=== PATIENT | female | born 1995 | race African-American/Black ===

== ENCOUNTER 2017-02-15 22:35 | Emergency (ER) | payer OTHER ==
[~2017-02-15 22:35] MED LIST: PRENATAL1 TA1 PO; ZOFRAN PO
== END 2017-02-16 00:16 | disposition home or self-care (01) ==
LOC: CFTX 22:35
DX: S63.502A Unspecified sprain of left wrist, initial encounter (principal); S93.601A Unspecified sprain of right foot, initial encounter; S80.02XA Contusion of left knee, initial encounter; F17.210 Nicotine dependence, cigarettes, uncomplicated; V49.00XA Driver injured in collision with unspecified motor vehicles in nontraffic accident, initial encounter
CPT/HCPCS: 29125; 99283

== ENCOUNTER 2017-05-24 16:06 | Emergency (ER) | payer OTHER ==
--- NOTE | ~2017-05-24 | US61 ---
[facility] A Service of [facility] & [facility] RADIOLOGY TEXT RESULTS PATIENT: KATHARINA HICKMAN LOCATION: CFTX : 94 UNIT #: [id number] AGE: [address]: Anna Meng SEX: F ORDER DR: [id number] [facility] [address] [place], [place] [address] [id number] MR#: [id number] Acc #: [id number] NAME: KATHARINA HICKMAN : 1995 SEX: F STUDY DATE/TIME: 05/24/2017 17:47 UNIT: CFTX ROOM: STUDY DESCRIPTION: US /Mat <14Wk / Attending Physician: Anna Meng Pa-C Ordering Physician: Ed Doctor [id number] [facility] Primary Care Physician: Primary Care Physician No MEDICAL IMAGING REPORT This report is preliminary unless electronic signature is present EXAM Pelvic ultrasound 05/24/2017 HISTORY 21-year-old female with pelvic pain for 1 day. Beta HCG of 40,431. COMPARISON None. FINDINGS Scanning of the pelvis demonstrates a single living intrauterine gestation estimated at 13 weeks 3 days by crown-rump length. cardiac motion identified at 82 beats per minute. This is below the normal range (120-160 beats per minute). No subchorionic fluid collections. Visualized uterus is otherwise unremarkable. The right ovary measures 5.5 x 3.5 x 3.8 cm. Normal flow in the right ovary. There is a functional cyst in the right ovary measuring 2.8 x 2.8 cm. The left ovary measures 3.4 x 2.4 x 3.6 cm. Normal vascular flow in the left ovary. A functional cyst noted in the left ovary measuring 2.4 x 2 x 2.2 cm. No significant free pelvic fluid. IMPRESSION 1. Single living intrauterine gestation estimated at 13 weeks 3 days by crown-rump length. cardiac motion identified at 82 beats per minute. This is below the range of normal (120 - 160 beats per minute). Follow up with serial beta-HCG and ultrasound as clinically warranted. 2. Both ovaries appear within normal limits. There are a functional cysts incidentally noted in both ovaries. Dictated by... [facility] A Service of [facility] & [facility] RADIOLOGY TEXT RESULTS PATIENT: KATHARINA HICKMAN LOCATION: CFTX : 94 UNIT #: [id number] AGE: [address]: Anna Meng SEX: F ORDER DR: Jaime House M.D. THIS IS AN ELECTRONICALLY VERIFIED REPORT Jaime House M.D. at 05/25/2017 3:57 PM FRANCISCO/leodan TD: 05/25/2017 04:09 JOB #: [id number] MEDICAL IMAGING REPORT Page 1 of 1 COPY
[2017-05-24 16:38] LABS: URINE SOURCE CLEAN CATCH
[2017-05-24 16:44] LABS: URINE APPEARANCE CLOUDY; URINE BILIRUBIN NEG (NEG); URINE BLOOD 2+ (NEG); URINE COLOR YELLOW; URINE GLUCOSE NEG (NEG); URINE KETONE 2+ (NEG); URINE LEUKOCYTE ESTERASE 2+ (NEG); URINE NITRATE POS (NEG); URINE PH 5.5 (5-8); URINE PROTEIN 1+ (NEG); URINE SPECIFIC GRAVITY 1.028 (1.003-1.035)
[2017-05-24 16:45] LABS: BASOPHIL# 0.1 X10e3 (0-0.3); BASOPHIL% 0.8 % (0-2.5); EOSINOPHIL# 0.3 X10e3 (0-0.7); EOSINOPHIL% 3.6 % (0.0-7.0); HEMATOCRIT 32.7 % (35.0-45.0); HEMOGLOBIN 10.4 gm/dL (12.0-16.0); LYMPHOCYTE# 2.4 X10e3 (1.0-3.5); LYMPHOCYTE% 34.1 % (17.0-45.0); MEAN CELL VOLUME 85.7 FL (83-96); MEAN CORPUSCULAR HEMOGLOBIN 27.2 PG (28-34); MEAN CORPUSCULAR HGB CONC 31.8 g/dL (30-36); MEAN PLATELET VOLUME 9.1 FL (6.5-11.5); MONOCYTE# 0.6 X10e3 (0-1.0); MONOCYTE% 7.9 % (3.0-12.0); NEUTROPHIL# 3.8 X10e3 (1.5-7.1); NEUTROPHIL% 53.6 % (40-75); PLATELET COUNT 217 X10e3 (140-420); RED BLOOD COUNT 3.82 X10e (3.90-5.30); RED CELL DISTRIBUTION WIDTH 12.1 % (11.0-15.5); WHITE BLOOD COUNT 7.1 X10e3 (4.0-10.5)
[2017-05-24 16:46] LABS: CULTURE INDICATED? YES; URBCS1 AUWI 25-50 /[HPF] (0-2); URINE BACTERIA AUWI 4+ (NEGATIVE); URINE SQUAMOUS EPITHELIAL CELL FEW /[HPF]; UWBCS1 AUWI INNUM (0-5)
[2017-05-24 16:50] LABS: DIFF IND NO
[2017-05-24 17:06] LABS: ALBUMIN SERUM 3.8 g/dL (3.5-5.0); BILIRUBIN, DIRECT 0.1 mg/dL (0.0-0.2); BILIRUBIN,INDIRECT 0.6 mg/dL (0.0-0.9); BILIRUBIN,TOTAL 0.7 mg/dL (0.2-2.0); BUN/CREATININE RATIO 22.5; CALCIUM SERUM 8.8 mg/dL (8.4-10.2); CREATININE SERUM 0.4 mg/dL (0.6-1.4); GLOM FILT RATE Estimated 171.4 mL/min (>60); POTASSIUM 3.2 mmol/L (3.5-5.1); PROTEIN TOTAL SERUM 6.8 g/dL (6.0-8.3)
[2017-05-26 21:13] LABS: CHLAMYDIA TRACH Not Detected (Not Detected); N GONOR Not Detected (Not Detected)
== END 2017-05-24 19:20 | disposition home or self-care (01) ==
LOC: CFTX 16:06 → CED 16:06 → CFTX 16:27
PROVIDERS: Physician Assistant
DX: O98.311 Other infections with a predominantly sexual mode of transmission complicating pregnancy, first trimester (principal); O99.331 Smoking (tobacco) complicating pregnancy, first trimester; A59.01 Trichomonal vulvovaginitis; F17.200 Nicotine dependence, unspecified, uncomplicated; Z3A.13 13 weeks gestation of pregnancy
CPT/HCPCS: 76801; 80048; 80076; 81003; 84702; 84703; 85025; 87086; 87088; 87186; 87220; 87491; 87591; 87808; 87905; 99284